=== PATIENT | female | born 1975 | race Caucasian/White ===

== ENCOUNTER → 2017-08-18 | Outpatient (CLI) | payer OTHER ==
[~2017-08-18] MED LIST: CALCIUM CARBONATE; PRENATAL1 TA1 PO; TYLENOL PM EXTR1 TA1 PO
== END ==
LOC: MC.RAD 08:58
DX: Z12.31 Encounter for screening mammogram for malignant neoplasm of breast (principal)

== ENCOUNTER → 2018-06-14 | Outpatient (CLI) | payer OTHER | LOC: MC.RAD 15:01 | DX: Z12.31 Encounter for screening mammogram for malignant neoplasm of breast (principal) ==

== ENCOUNTER → 2018-10-10 | Outpatient (CLI) | payer OTHER | LOC: MC.RAD 08:25 | DX: N64.52 Nipple discharge (principal) | CPT/HCPCS: G0279 ==

== ENCOUNTER → 2019-08-14 | Outpatient (CLI) | payer OTHER | LOC: MC.RAD 14:58 | DX: Z12.31 Encounter for screening mammogram for malignant neoplasm of breast (principal) ==

== ENCOUNTER 2020-04-18 10:54 | Emergency (ER) | payer OTHER ==
[~2020-04-18] VITALS: Ht 182.9 cm; Wt 90.9 kg
[2020-04-18 11:00] VITALS: BP 107/73; TEMP 97.2
[2020-04-18 12:08] VITALS: PULSE 83
== END 2020-04-18 12:08 | disposition home or self-care (01) ==
LOC: COL.ER 10:54
DX: S01.81XA Laceration without foreign body of other part of head, initial encounter (principal); F41.9 Anxiety disorder, unspecified; Z23 Encounter for immunization; W01.0XXA Fall on same level from slipping, tripping and stumbling without subsequent striking against object, initial encounter; Y92.009 Unspecified place in unspecified non-institutional (private) residence as the place of occurrence of the external cause

== ENCOUNTER → 2020-09-08 | Outpatient (CLI) | payer OTHER | LOC: MC.RAD 08:19 | DX: Z12.31 Encounter for screening mammogram for malignant neoplasm of breast (principal); N63.10 Unspecified lump in the right breast, unspecified quadrant ==

== ENCOUNTER → 2020-09-17 | Outpatient (CLI) | payer OTHER | LOC: MC.RAD 10:30 | DX: N63.10 Unspecified lump in the right breast, unspecified quadrant (principal) ==

== ENCOUNTER → 2021-03-18 | Outpatient (CLI) | payer OTHER | LOC: MC.RAD 08:30 | DX: R92.8 Other abnormal and inconclusive findings on diagnostic imaging of breast (principal); N64.9 Disorder of breast, unspecified ==

== ENCOUNTER → 2021-10-05 | Outpatient (CLI) | payer OTHER | LOC: MC.RAD 07:30 | DX: Z12.31 Encounter for screening mammogram for malignant neoplasm of breast (principal) ==

== ENCOUNTER → 2022-04-08 | Outpatient (CLI) | payer OTHER | LOC: COL.PUL 07:34 | DX: R06.02 Shortness of breath (principal) ==